=== PATIENT | female | born 1985 | race Caucasian/White ===

== ENCOUNTER 2017-06-02 10:47 | Inpatient (IN) ==
[2017-06-02] MEDS ORDERED: 0.9 % Sodium Chloride 1,000 ML IVC ONE (11:23)
[2017-06-02 11:38] LABS: Basophils # 0.1 K/mcL (0.0-0.2); Basophils % 0.6 %; Eosinophils # 0.1 K/mcL (0.0-0.6); Eosinophils % 0.9 %; Hemoglobin 13.1 g/dL (11.5-15.4); Immature Granulocytes % 0.3 % (0-4); Lymphocytes # 1.9 K/mcL (0.6-4.6); Lymphocytes % 19.2 %; Mean Corpuscular Hemoglobin 28.4 pg (28.0-33.3); Mean Corpuscular Volume 88.7 fL (83.0-100.0); Mean Platelet Volume 10.6 fL (9.4-12.4); Monocytes # 0.6 K/mcL (0.0-1.3); Monocytes % 6.1 %; Neutrophils # 7.3 K/mcL (1.6-8.9); Platelet Count 280 K/mcL (140-400); Red Blood Count 4.62 M/mcL (3.82-4.97); Red Cell Distribution Width 14.6 % (11.5-14.5); Segmented Neutrophils % 72.9 %
[2017-06-02] MEDS ORDERED: Vancomycin 1,000 MG in D5% in Water 250 ML IVPB ONE (11:38)
[2017-06-02] MEDS ORDERED: Clindamycin 600 MG/50 ML 600 MG/50 ML IV.SOLN IVPB ONE (11:38)
--- NOTE | 2017-06-02 11:44 | Emergency Department Note ---
Disposition Clinical Impression: Abscess Disposition: Admitted As Inpatient Condition: Good Time of Disposition: 15:48 General Adult HPI - General Chief complaint: ED Wound/Laceration Stated complaint: facial abscess Time Seen by Provider: 06/02/17 11:00 Source: patient Limitations: no limitations Nursing Notes Reviewed: Yes Vital Signs Reviewed: Yes - History of Present Illness HPI Narrative: Female patient complaining of an abscess to her face. She states this has been present since last . Since approximately 1 week ago. She has been on antibiotics for 2 days no resolution of this. This been draining a purulent discharge for 2 days. She states there is some pain to this area. She denies any shortness of breath or chest pain. She denies any episodes of fever. There are no provoking factors. She denies any trauma to her face. Pain Scale: 5 - Related Data Home Medications Medication Instructions Recorded Confirmed Amoxicillin/Clavulanate [Augmentin] 875 mg PO BIDWM 06/02/17 06/02/17 Buspirone HCl [Buspar] 7.5 mg PO BID 06/02/17 06/02/17 Butalb/Acetaminophen/Caffeine 1 tab PO Q4H PRN 06/02/17 06/02/17 [Fioricet 50-300-40 mg Capsule] Lisinopril [Zestril] 20 mg PO DAILY 06/02/17 06/02/17 Loratadine [Claritin] 10 mg PO DAILY 06/02/17 06/02/17 Naproxen [Naprosyn] 500 mg PO BID PRN 06/02/17 06/02/17 Omeprazole [PriLOSEC] 20 - 40 mg PO DAILY 06/02/17 06/02/17 Promethazine [Phenergan] 12.5 - 25 mg PO Q6-8H PRN 06/02/17 06/02/17 Psyllium Husk [Metamucil] 17 gm PO DAILY PRN 06/02/17 06/02/17 Tramadol HCl [Ultram] 50 mg PO BID PRN 06/02/17 06/02/17 hydrOXYzine HCl [Hydroxyzine HCl] 50 mg PO Q6-8H PRN 06/02/17 06/02/17 Allergies Allergy/AdvReac Type Severity Reaction Status Date / Time No Known Allergies Allergy Verified 06/02/17 13:58 All systems ED: reviewed and negative except as stated. Constitutional: Denies: fever, chills ENT ED: Denies: ear pain, throat pain, dental pain, congestion, dysphagia Cardiovascular: Denies: chest pain, palpitations, syncope Respiratory: Denies: cough, dyspnea, wheezes Gastrointestinal: Denies: abdominal pain, nausea, vomiting, diarrhea, hematemesis Genitourinary: Denies: urgency, dysuria, frequency, hematuria Musculoskeletal: Denies: back pain, neck pain Integumentary: Reports: lesions. Denies: rash, abrasion Past Medical History - Past Medical History Medical history: Reports: hypertension, kidney stones, other Psychiatric history: Reports: anxiety, depression - Social History Smoking Status: Current every day smoker Smokeless Tobacco Status: No Alcohol use: Reports: none Drug use: Reports: none Physical Exam - General Limitations: no limitations General appearance: alert, in no apparent distress - Head Head exam: atraumatic, normocephalic, normal inspection - Eye Eye exam: Present: normal appearance, PERRL, EOMI. Absent: scleral icterus - ENT ENT exam: normal exam, normal oropharynx, mucous membranes moist, other ( Purulent abscess draining from patient's chin. Mild area of cellulitis extending to the left mandible area area.) - Neck Neck exam: Present: normal inspection, full ROM, trachea midline, lymphadenopathy (Small lymph node noticed on the left cervical chain.). Absent : tenderness, meningismus - Chest Chest inspection: Present: normal inspection, symmetric chest wall rise. Absent : tenderness - Respiratory Respiratory exam: Present: normal lung sounds bilaterally. Absent: respiratory distress, accessory muscle use - Cardiovascular Cardiovascular exam: Present: regular rate, normal rhythm, normal heart sounds - Abdominal Exam Abdominal exam: Present: soft, Non-Tender. Absent: tenderness, distention, rigidity, organomegaly - Extremities Exam Extremities exam: Present: normal inspection, full ROM, normal capillary refill. Absent: tenderness, pedal edema - Back Exam Back exam: Present: normal inspection, full ROM. Absent: tenderness, CVA tenderness (R), CVA tenderness (L) - Neurological Exam Neurological exam: Present: alert, oriented X3 - Psychiatric Psychiatric exam: Present: normal affect, normal mood - Skin Skin exam: Present: warm, dry, intact, normal color. Absent: rash Course Course Narrative: Patient complaining of a facial abscess. She states that this started on . It is to her chin area. She states that she has been on Augmentin for 2 days with no resolution. It has been draining a purulent discharge for the past 2 days as well. She denies any trouble swallowing trouble talking or any elevation in the bottom of her mouth. She states that she does have a history of pseudotumor cerebri as well as a Chiari malformation and a shunt. The shunt goes on the right side of her face. The abscesses to the left side of her mental protuberance. There does appear to be small area of cellulitis that extends to the left side of her face. There is no invasion under her jaw. There are no lymph nodes involved. There is no elevation or deviation of her tongue. Patient denies any fevers. She was sent here by her primary care physician who is requesting admission after failed outpatient antibiotics. Will get a CT with contrast the patient's face. We will start patient on antibiotics. We will Cover for MRSA. After CT is back I will consult surgery for the abscess on her face. Patient is agreeable with admission and IV antibiotics as well as a CT. - Reevaluation(s) Reevaluation #1: Patient failed outpatient antibiotic therapy. Her CT of her face did not show any discernible abscess. We are going to open a small area to her chin at bedside due to it draining a purulent discharge at this time. This area drained approximately 10 mL of purulent discharge. We will admit her to the hospital. Time: 14:47 - Consultations Consultation #1: Dr Garza accepted patient in stable condition. Time: 14:47 Vital Signs Temperature 98.0 F 06/02/17 10:55 Pulse Rate 104 06/02/17 10:55 Respiratory Rate 16 06/02/17 10:55 Blood Pressure 134/98 06/02/17 10:55 O2 Sat by Pulse Oximetry 97 06/02/17 10:55 Temperature 98.0 F 06/02/17 10:55 Pulse Rate 75 06/02/17 15:25 Respiratory Rate 0 06/02/17 15:30 Blood Pressure 0/0 06/02/17 15:30 O2 Sat by Pulse Oximetry 98 06/02/17 15:25 Oxygen Delivery Oxygen Delivery Room Air Medical Decision Making - Medical Records Medical records reviewed: Yes I reviewed the patient's medical records. - Lab Data Lab results reviewed: Yes I reviewed the patient's lab results. Result diagrams: 06/02/17 11:31 06/02/17 11:31 Lab Results 06/02/17 06/02/17 06/02/17 Range/Units 11:31 11:31 12:47 WBC 10.1 (4.3-11.1) K/mcL RBC 4.62 (3.82-4.97) M/mcL Hgb 13.1 (11.5-15.4) g/dL Hct 41.0 (35.3-44.9) % MCV 88.7 (83.0-100.0) fL MCH 28.4 (28.0-33.3) pg MCHC 32.0 (31.6-35.5) g/dL RDW 14.6 H (11.5-14.5) % Plt Count 280 (140-400) K/mcL MPV 10.6 (9.4-12.4) fL Immature Gran % 0.3 (0-4) % Seg Neutrophils % 72.9 % Lymphocytes % 19.2 % Monocytes % 6.1 % Eosinophils % 0.9 % Basophils % 0.6 % Neutrophils # 7.3 (1.6-8.9) K/mcL Lymphocytes # 1.9 (0.6-4.6) K/mcL Monocytes # 0.6 (0.0-1.3) K/mcL Eosinophils # 0.1 (0.0-0.6) K/mcL Basophils # 0.1 (0.0-0.2) K/mcL Sodium 137 (136-145) mEq/L Potassium 4.5 (3.5-4.5) mEq/L Chloride 105 (98-109) mEq/L Carbon Dioxide 25 (19-29) mEq/L BUN 11 (7-20) mg/dL Creatinine 0.79 (0.57-1.11) mg/dL Est GFR ( Amer) > 60 (> 60) Est GFR (Non-Af Amer) > 60 (> 60) BUN/Creatinine Ratio 14 (6-26) Glucose 98 (70-99) mg/dL Calculated Osmolality 283 (280-300) Calcium 9.4 (8.6-10.8) mg/dL Total Bilirubin < 0.3 (0.2-1.2) mg/dL AST 8 (5-34) Units/L ALT < 6 (0-55) Units/L Alkaline Phosphatase 83 (38-126) Units/L Serum Total Protein 7.5 (6.0-8.3) g/dL Albumin 3.6 (3.5-5.0) g/dL Globulin 3.9 H (2.4-3.5) g/dL Albumin/Globulin Ratio 0.9 L (1.1-2.2) Serum , Qual Negative (Negative) - Radiology Data Radiology results reviewed: Yes I reviewed the patient's radiology results. Face CT 06/02/17 11:21 IMPRESSION: Cellulitis of the chin with prominent infiltration of the subcutaneous tissue. No abscess is identified. No deep space infection is identified. Left cervical adenopathy, likely reactive. D/ / Henry Milton MD / Henry Milton MD Interpreting Provider: Henry Milton MD Attestation Statement - Attestation Attestation: I examined this patient and my medical decision-making was reviewed with the Resident Physician. I agree with the documented findings, disposition and treatment plan as described except to the extent set forth below. Patient to the emergency department the chief complaint of facial swelling. Patient saw her primary care physician 2 days ago was placed on Augmentin for some swelling in the left side of her face. He got worse and is now draining purulent material from her chin. Her physician is concerned because it is worsening on antibiotic and because she has a right-sided [employer] SAL[employer]NA[employer] shunt for her Chiari malformation. On examination she has a moderate amount of swelling to the left submental area. There is an area of fluctuance with some minimal draining. Plan. We will check CTA. IV antibiotic. Likely admission. CT does not show any obvious abscess. I was able to express about 10 mL of purulent material from the area. Culture sent. Admitted to medicine for IV antibiotic.
[2017-06-02 11:51] LABS: Albumin 3.6 g/dL (3.5-5.0); Albumin/Globulin Ratio 0.9 (1.1-2.2); Alkaline Phosphatase 83 Units/L (38-126); Aspartate Amino Transferase 8 Units/L (5-34); BUN/Creatinine Ratio 14 (6-26); Blood Urea Nitrogen 11 mg/dL (7-20); Calcium 9.4 mg/dL (8.6-10.8); Carbon Dioxide 25 mEq/L (19-29); Chloride 105 mEq/L (98-109); Globulin 3.9 g/dL (2.4-3.5); Glucose 98 mg/dL (70-99); Osmolality,Calculated 283 (280-300); Potassium 4.5 mEq/L (3.5-4.5); Sodium 137 mEq/L (136-145); Total Protein 7.5 g/dL (6.0-8.3); eGFR For African Americans > 60 (> 60); eGFR For Non-African Americans > 60 (> 60)
[2017-06-02 11:55] LABS: Alanine Aminotransferase < 6 Units/L (0-55); Bilirubin,Total < 0.3 mg/dL (0.2-1.2)
[2017-06-02] MEDS ORDERED: Ketorolac 15 MG/ML VIAL IVP ONE (14:26)
[2017-06-02] MEDS ORDERED: Lidocaine 1% 20 ML MDV INFILT ONE (14:43)
[2017-06-02] MEDS ORDERED: Naloxone 0.4 MG/ML INJ IVP PRN (15:14)
[2017-06-02] MEDS ORDERED: Acetaminophen 325 MG TABLET PO PRN (15:17)
[2017-06-02] MEDS ORDERED: hydrOXYzine pamoate 25 MG CAPSULE PO PRN (15:18)
[2017-06-02] MEDS ORDERED: Ondansetron ODT 4 MG TAB.RAPDIS SL ONE (15:20)
--- NOTE | 2017-06-02 15:21 | Event Note ---
Date of Encounter: 06/02/17 Time of Encounter: 15:21 1. Facial cellulitis/chin failed outpatient therapy with Augmentin and Start doxycycline IV, patient was explained the risks of discontinuing clindamycin and vancomycin Follow cultures results. CT scan does not show any drainable collection and the lesion was partially drained at the ER 2. Chiary malformation status post [employer] shunt 3. Pseudotumor cerebri 4. Tobacco, smoking cessation counseling, nicotine patch Subcutaneous heparin for deep prophylaxis, patient will be admitted as inpatient , expected stimulant to maintenance. Full code. Time spent on this admission 40 minutes. H&P to be completed by KP Pinto
--- NOTE | 2017-06-02 15:26 | Internal Med History&Physical ---
<Colton Bess J - Last Filed: 06/02/17 15:26> Date of Encounter: 06/02/17 Time of Encounter: 15:21 Assessment and Plan (1) Facial abscess Current visit: Yes Status: Acute Acute facial abcess x5 days with failed outpatient tx. Concerning for MRSA. Discontinuing Vanco and Clindamycin. Starting Doxy. She does not appear to be ill or in distress at this time. Wound cultures sent; ATB to be adjusted based on cultures. CBC, BMP in am. (2) HTN (hypertension) Current visit: Yes Status: Chronic Presently stable will continue lisinopril. Will titrate BP meds as needed Qualifiers: Hypertension type: essential hypertension Qualified Code(s): I10 - Essential (primary) hypertension (3) DVT prophylaxis Current visit: Yes Status: Acute lovenox Internal Medicine - H&P: HPI Chief complaint: facial wound Admitted From: Home Plans for Post Hospital Care: Home History of present illness: Ms. Preciado is a 31 year old female with a PMH of HTN, renal calculi, anxiety and depression. Presents with facial pain and a new lesion on her left chin which she first noticed 5 days ago. Information obtained from chart review and patient. Went to primary care and was placed on Augmentin with no improvement. Upon f/u with primary care doc, sent to ED for further evaluation. Received Vanco and Clinda in the ED and wound cultures sent. Patient afebrile, no chills , no difficulty breathing. Admits to slight difficulty swallowing. No difficulty maintaining airway, no stridor, no lymphadenopathy. She is being admitted for further workup and evaluation. Past Med Surg Social Fam HX - Past Medical History Medical history: hypertension, kidney stones, other Psychiatric history: anxiety, depression - Social History Smoking Status: Current every day smoker Smokeless Tobacco Status: No Alcohol use: none Drug use: none Internal Medicine - H&P: Meds Amoxicillin/Clavulanate [Augmentin] 875 mg PO BIDWM 06/02/17 [History] Buspirone HCl [Buspar] 7.5 mg PO BID 06/02/17 [History] Butalb/Acetaminophen/Caffeine [Fioricet 50-300-40 mg Capsule] 1 tab PO Q4H PRN 06/02/17 [History] Lisinopril [Zestril] 20 mg PO DAILY 06/02/17 [History] Loratadine [Claritin] 10 mg PO DAILY 06/02/17 [History] Naproxen [Naprosyn] 500 mg PO BID PRN 06/02/17 [History] Omeprazole [PriLOSEC] 20 - 40 mg PO DAILY 06/02/17 [History] Promethazine [Phenergan] 12.5 - 25 mg PO Q6-8H PRN 06/02/17 [History] Psyllium Husk [Metamucil] 17 gm PO DAILY PRN 06/02/17 [History] Tramadol HCl [Ultram] 50 mg PO BID PRN 06/02/17 [History] hydrOXYzine HCl [Hydroxyzine HCl] 50 mg PO Q6-8H PRN 06/02/17 [History] Allergies No Known Allergies Allergy (Verified 06/02/17 13:58) All Systems PM: A 10-system review of systems was performed and is negative for pertinent findings except as documented above in the HPI. - Constitutional Constitutional: no chills, no fever(s), no night sweats - EENT Eyes: no change in vision, no discharge, no pain, no photophobia Ears: no ear discharge, no ear pain, no tinnitus Nose, mouth and throat: no dysphagia, no nasal discharge, no neck pain, no sore throat Additional comments: Admits to slight difficulty swallowing d/t pain from lesion - Cardiovascular Cardiovascular ROS IM: no chest pain, no diaphoresis, no dyspnea, no lightheadedness, no palpitations, no syncope - Respiratory Respiratory: no cough, no dyspnea, no wheezing, no excessive phlegm production - Gastrointestinal Gastrointestinal: no abdominal pain, no diarrhea, no hematemesis, no hematochezia, no melena, no nausea, no vomiting - Genitourinary Genitourinary: no change in urinary stream, no dysuria, no flank pain, no hematuria - Musculoskeletal Musculoskeletal ROS IM: no numbness, no tingling - Integumentary Integumentary IM: no rash, no unusual bruising - Neurological Neurological ROS: no confusion, no convulsions, no focal weakness, no numbness, no tingling, no tremor(s) - Hematologic/Lymphatic Hematologic/Lymphatic: no easy bruising - Constitutional Vitals: Temp Pulse Resp BP Pulse Ox 98.0 F 80 18 117/83 99 06/02/17 10:55 06/02/17 14:23 06/02/17 14:23 06/02/17 14:23 06/02/17 14:23 General appearance: Present: A&O X 3, no acute distress, answers questions appropriately - Head Head exam: Present: atraumatic, normocephalic - Eye Eye exam: Present: PERRL, conjuntiva pink, sclera anicteric Pupils: Present: PERRL - Neck Neck exam general surgery: Present: supple, trachea midline. Absent: lymphadenopathy - Respiratory Respiratory exam: Present: CTAB. Absent: accessory muscle use, rales, rhonchi, wheezes - Cardiovascular Cardiovascular exam: Present: RRR, +S1, +S2. Absent: diastolic murmur, gallop, rubs, systolic murmur - GI/Abdominal GI/Abdominal exam: Present: normal bowel sounds, soft, no peritoneal signs. Absent: distended, tenderness - Extremities Exam Extremities exam: Present: warm, radial pulses palpable and symetrical. Absent : calf tenderness, cyanotic, pedal edema - Neurological Exam Neurological exam: Present: CN II-XII intact, oriented X3, no focal deficits. Absent: pronater drift, facial droop, speech deficit - Skin Skin exam: Present: dry, intact - Expanded Skin Exam Type of lesion: Present: abscess Distribution of rash: Present: face Description of rash: Present: fluctuant, swelling, tenderness Internal Med - H&P Results - Labs CBC & Chem 7: 06/02/17 11:31 06/02/17 11:31 <Ed Greene H - Last Filed: 06/02/17 15:47> Date of Encounter: 06/02/17 Internal Medicine - H&P: HPI History of present illness: Ms. Preciado is a 31 year old female All Systems PM: A 10-system review of systems was performed and is negative for pertinent findings except as documented above in the HPI. - Constitutional Vitals: Temp Pulse Resp BP Pulse Ox 98.0 F 75 0 0/0 98 06/02/17 10:55 06/02/17 15:25 06/02/17 15:30 06/02/17 15:30 06/02/17 15:25 Internal Med - H&P Results - Labs CBC & Chem 7: 06/02/17 11:31 06/02/17 11:31 - Attending Attestation 1. Facial cellulitis/chin failed outpatient therapy with Augmentin and Start doxycycline IV, patient was explained the risks of discontinuing clindamycin and vancomycin Follow cultures results. CT scan does not show any drainable collection and the lesion was partially drained at the ER 2. Chiary malformation status post [employer] shunt 3. Pseudotumor cerebri 4. Tobacco, smoking cessation counseling, nicotine patch Subcutaneous heparin for deep prophylaxis, patient will be admitted as inpatient , expected stimulant to maintenance. Full code. Time spent on this admission 40 minutes. High risk due to failed outpatient therapy For this encounter, I have reviewed the RECENTERER or PA documentation, treatment plan, and medical decision making; and I have had face to face time with this patient.
[2017-06-02] MEDS: Doxycycline 100 MG in 0.9 % Sodium Chloride Mini Bag 100 ML IVPB SCH (17:30)
[2017-06-02] MEDS ORDERED: Doxycycline 100 MG in 0.9 % Sodium Chloride Mini Bag 100 ML IVPB SCH (18:00)
[2017-06-03] MEDS: Doxycycline 100 MG in 0.9 % Sodium Chloride Mini Bag 100 ML IVPB SCH ×2 (03:58→17:09)
[2017-06-03 06:25] LABS: Basophils # 0.1 K/mcL (0.0-0.2); Eosinophils # 0.2 K/mcL (0.0-0.6); Eosinophils % 2.5 %; Hematocrit 35.7 % (35.3-44.9); Immature Granulocytes % 0.1 % (0-4); Lymphocytes # 2.8 K/mcL (0.6-4.6); Lymphocytes % 38.9 %; Mean Corpuscular HGB Conc 31.4 g/dL (31.6-35.5); Mean Corpuscular Hemoglobin 28.1 pg (28.0-33.3); Mean Corpuscular Volume 89.5 fL (83.0-100.0); Mean Platelet Volume 10.9 fL (9.4-12.4); Monocytes # 0.8 K/mcL (0.0-1.3); Neutrophils # 3.3 K/mcL (1.6-8.9); Platelet Count 258 K/mcL (140-400); Red Blood Count 3.99 M/mcL (3.82-4.97); Red Cell Distribution Width 14.5 % (11.5-14.5); Segmented Neutrophils % 46.5 %
[2017-06-03 06:26] LABS: Hemoglobin 11.2 g/dL (11.5-15.4)
[2017-06-03 06:44] LABS: BUN/Creatinine Ratio 13 (6-26); Blood Urea Nitrogen 9 mg/dL (7-20); Calcium 8.6 mg/dL (8.6-10.8); Carbon Dioxide 23 mEq/L (19-29); Chloride 109 mEq/L (98-109); Glucose 88 mg/dL (70-99); Osmolality,Calculated 282 (280-300); Sodium 137 mEq/L (136-145); eGFR For African Americans > 60 (> 60); eGFR For Non-African Americans > 60 (> 60)
[2017-06-03] MEDS: *HR* Enoxaparin 40 MG/0.4 ML SYRINGE SQ SCH (07:27)
[2017-06-03] MEDS: Lisinopril 20 MG TABLET PO SCH (08:27)
[2017-06-03] MEDS: Loratadine 10 MG TABLET PO SCH (08:28)
--- NOTE | 2017-06-03 08:31 | Internal Med Progress Note ---
Date of Encounter: 06/03/17 Time of Encounter: 08:30 - Assessment and plan (1) Facial abscess Current Visit: Yes Status: Acute (2) DVT prophylaxis Current Visit: Yes Status: Acute (3) HTN (hypertension) Current Visit: Yes Status: Chronic Qualifiers: Hypertension type: essential hypertension Qualified Code(s): I10 - Essential (primary) hypertension - Subjective Interval history: Ms. Preciado is a 31 year old female with a PMH of HTN, renal calculi, anxiety and depression. Presents with facial pain and a new lesion on her left chin which she first noticed 5 days ago. Information obtained from chart review and patient. Went to primary care and was placed on Augmentin with no improvement. Upon f/u with primary care doc, sent to ED for further evaluation. Received Vanco and Clinda in the ED and wound cultures sent. Dr Garza who admitted the patient has discontinued vancomycin and clindamycin and started patient on doxycycline. Cultures are pending. Patient failed outpatient treatment. However, now abcess is draining. Add Clinda to Dox/ await cultures. - Constitutional Vitals: Temp Pulse Resp BP Pulse Ox 98.0 F 82 16 118/77 100 06/03/17 07:34 06/03/17 07:34 06/03/17 07:34 06/03/17 07:34 06/03/17 07:34 General appearance: Present: A&O X 3, no acute distress, answers questions appropriately - Head Head exam: Present: atraumatic, normocephalic Additional comments: Patient has an open punctum of her facial abscess which is located at her chin. Mild surrounding erythema still induratedand significant warmth. Recommend warm soaks to avoid any further incision and drainage considering the location. - Eye Eye exam: Present: PERRL, conjuntiva pink, sclera anicteric Pupils: Present: PERRL - Neck Neck exam general surgery: Present: supple, trachea midline. Absent: lymphadenopathy - Respiratory Respiratory exam: Present: CTAB. Absent: accessory muscle use, rales, rhonchi, wheezes - Cardiovascular Cardiovascular exam: Present: RRR, +S1, +S2. Absent: diastolic murmur, gallop, rubs, systolic murmur - GI/Abdominal GI/Abdominal exam: Present: normal bowel sounds, soft, no peritoneal signs. Absent: distended, tenderness - Extremities Exam Extremities exam: Present: warm, radial pulses palpable and symetrical. Absent : calf tenderness, cyanotic, pedal edema - Neurological Exam Neurological exam: Present: CN II-XII intact, oriented X3, no focal deficits. Absent: pronater drift, facial droop, speech deficit - Skin Skin exam: Present: dry, intact Internal Medicine: Result - Labs CBC & Chem 7: 06/03/17 05:35 06/03/17 05:35 Labs: Short CBC 06/03/17 Range/Units 05:35 WBC 7.2 (4.3-11.1) K/mcL Hgb 11.2 L D (11.5-15.4) g/dL Hct 35.7 (35.3-44.9) % Plt Count 258 (140-400) K/mcL Neutrophils # 3.3 (1.6-8.9) K/mcL BMP 06/03/17 05:35 Sodium 137 Potassium 4.0 Chloride 109 Carbon Dioxide 23 BUN 9 Creatinine 0.72 Glucose 88 Calcium 8.6 Consult Discharge Plan - Plan Referrals: Joaquim Rodriguez MD [Primary Care Provider] -
[2017-06-03] MEDS: *HR* HYDROcodone/Acet 5/325 mg TABLET PO PRN ×2 (11:22→21:31)
[2017-06-03] MEDS ORDERED: Ondansetron 4 MG/2 ML VIAL IVP PRN (17:20)
[2017-06-03] MEDS: Doxycycline 100 MG CAPSULE PO SCH (21:31)
[2017-06-04] MEDS: *HR* Enoxaparin 40 MG/0.4 ML SYRINGE SQ SCH (06:30)
[2017-06-04] MEDS: Doxycycline 100 MG CAPSULE PO SCH (07:32)
[2017-06-04] MEDS: Loratadine 10 MG TABLET PO SCH (07:32)
[2017-06-04] MEDS: Lisinopril 20 MG TABLET PO SCH (07:33)
[2017-06-04] MEDS: *HR* HYDROcodone/Acet 5/325 mg TABLET PO PRN ×2 (07:37→13:36)
--- NOTE | 2017-06-04 10:22 | Discharge Summary ---
Date of Encounter: 06/04/17 Time of Encounter: 10:18 - Discharge Diagnosis (1) Facial abscess Priority: Primary Status: Acute (2) HTN (hypertension) Priority: Secondary Status: Chronic Qualifiers: Hypertension type: essential hypertension Qualified Code(s): I10 - Essential (primary) hypertension (3) DVT prophylaxis Priority: Secondary Status: Acute - Discharge Medications Prescriptions: Clindamycin HCl [Cleocin HCl] 300 mg PO TID #30 cap Home Medications: Buspirone HCl [Buspar] 7.5 mg PO BID 06/02/17 [History] Butalb/Acetaminophen/Caffeine [Fioricet 50-300-40 mg Capsule] 1 tab PO Q4H PRN 06/02/17 [History] Lisinopril [Zestril] 20 mg PO DAILY 06/02/17 [History] Loratadine [Claritin] 10 mg PO DAILY 06/02/17 [History] Naproxen [Naprosyn] 500 mg PO BID PRN 06/02/17 [History] Omeprazole [PriLOSEC] 20 - 40 mg PO DAILY 06/02/17 [History] Promethazine [Phenergan] 12.5 - 25 mg PO Q6-8H PRN 06/02/17 [History] Psyllium Husk [Metamucil] 17 gm PO DAILY PRN 06/02/17 [History] Tramadol HCl [Ultram] 50 mg PO BID PRN 06/02/17 [History] hydrOXYzine HCl [Hydroxyzine HCl] 50 mg PO Q6-8H PRN 06/02/17 [History] Acetaminophen [Tylenol] 650 mg PO Q6HR PRN tab 06/04/17 [Rx] Clindamycin HCl [Cleocin HCl] 300 mg PO TID #30 cap 06/04/17 [Rx] Allergies/Adverse Reactions: Allergies No Known Allergies Allergy (Verified 06/02/17 13:58) Date of admission: 06/02/17 16:22 Primary care physician: Joaquim Rodriguez MD Discharging clinician: Florina Beltran Anticipated date of discharge: 06/04/17 - Patient Status Disposition: Home, Self-Care Condition: Good Overall status at discharge: patient is progressing back to baseline - Discharge Instructions Instructions: Clindamycin (By mouth) Follow Up With: Joaquim Rodriguez MD [Primary Care Provider] - (please call tuesday to make a follow up appointment ) - Diet and Activity Activity: resume usual activities as tolerated Diet: advance to your usual diet (Daily wet-to-dry dressing) Hospital course: Ms. Preciado is a 31 year old female with a PMH of HTN, renal calculi, anxiety and depression. Presents with facial pain and a new lesion on her left chin which she first noticed 5 days ago. Information obtained from chart review and patient. Went to primary care and was placed on Augmentin with no improvement. Upon f/u with primary care doc, sent to ED for further evaluation. Received Vanco and Clinda in the ED and wound cultures sent. Dr Garza who admitted the patient has discontinued vancomycin and clindamycin and started patient on doxycycline. I later switch her to clindamycin and Doxy by mouth. Wound culture this morning showed MRSA sensitive to both clindamycin and Doxy. Patient will be discharged home on by mouth doxycycline for a week with daily dressing change and follow-up with family doctor. - Time Spent with Patient Total time spent providing and/or coordinating discharge services: Greater than 30 minutes - Constitutional Vitals: Temp Pulse Resp BP Pulse Ox 98.3 F 79 16 98/65 97 06/04/17 07:10 06/04/17 07:10 06/04/17 07:10 06/04/17 07:10 06/04/17 07:10 General appearance: Present: A&O X 3, no acute distress, answers questions appropriately - Head Head exam: Present: atraumatic, normocephalic Additional comments: Facial swelling and erythema at Chin has gone down - Eye Eye exam: Present: PERRL, conjuntiva pink, sclera anicteric Pupils: Present: PERRL - Neck Neck exam general surgery: Present: supple, trachea midline. Absent: lymphadenopathy - Respiratory Respiratory exam: Present: CTAB. Absent: accessory muscle use, rales, rhonchi, wheezes - Cardiovascular Cardiovascular exam: Present: RRR, +S1, +S2. Absent: diastolic murmur, gallop, rubs, systolic murmur - GI/Abdominal GI/Abdominal exam: Present: normal bowel sounds, soft, no peritoneal signs. Absent: distended, tenderness - Extremities Exam Extremities exam: Present: warm, radial pulses palpable and symetrical. Absent : calf tenderness, cyanotic, pedal edema - Neurological Exam Neurological exam: Present: CN II-XII intact, oriented X3, no focal deficits. Absent: pronater drift, facial droop, speech deficit - Skin Skin exam: Present: dry, intact
[2017-06-04 10:58] VITALS: BP 111/75
== END 2017-06-04 14:00 | disposition home or self-care (01) | DRG 580 ==
LOC: 3NENU 10:47 → EMEROO 10:47 → 3NENU 15:33 → 2ANU 06-03 16:55
PROVIDERS: ADMIT Family Medicine; ATTEND Family Medicine